=== PATIENT | female | born 1985 | race African-American/Black ===

== ENCOUNTER 2017-01-24 12:26 | Inpatient (IN) | payer MEDICAID, OTHER ==
[~2017-01-24] VITALS: Ht 160 cm; Wt 88.6 kg
[2017-01-24 16:48] LABS: MEAN CORPUSCULAR HEMOGLOBIN 23.5 pg (27.0-33.0); MEAN CORPUSCULAR HGB CONC 30.8 g/dl (32.0-36.5); MEAN CORPUSCULAR VOLUME 76.1 fl (80.0-96.0); RED CELL DISTRIBUTION WIDTH 19.6 % (11.5-14.5); WHITE BLOOD COUNT 7.4 10^3/uL (4.0-10.0)
[2017-01-24 17:18] LABS: ALBUMIN 3.8 GM/DL (3.2-5.2); ALBUMIN/GLOBULIN RATIO 1.15 (1.00-1.93); ALKALINE PHOSPHATASE 71 U/L (45-117); ALT/SGPT 22 U/L (12-78); ANION GAP 7 MEQ/L (8-16); AST/SGOT 19 U/L (15-37); BILIRUBIN,DIRECT 0.2 MG/DL (0.0-0.2); BILIRUBIN,TOTAL 0.4 MG/DL (0.2-1.0); BLOOD UREA NITROGEN 11 MG/DL (7-18); CALCIUM LEVEL 10.1 MG/DL (8.5-10.1); CARBON DIOXIDE LEVEL 27 MEQ/L (21-32); CHLORIDE LEVEL 104 MEQ/L (98-107); CREATININE FOR GFR 0.63 MG/DL (0.55-1.02); GLOMERULAR FILTRATION RATE > 60.0 (>60); GLUCOSE, FASTING 113 MG/DL (70-105); POTASSIUM SERUM 4.3 MEQ/L (3.5-5.1); SODIUM LEVEL 138 MEQ/L (136-145); TOTAL PROTEIN 7.1 GM/DL (6.4-8.2)
[2017-01-24 17:33] LABS: METHADONE URINE NEGATIVE (NEGATIVE)
[2017-01-24 18:18] VITALS: BP 120/60
[2017-01-24] MEDS ORDERED: traZODone 50 MG TAB PO PRN (19:30)
[2017-01-24] MEDS ORDERED: MAALOX 30 ML SUSP *UDC PO PRN (19:30)
[2017-01-24] MEDS ORDERED: MOM 30ML SUSPENSION UDC PO PRN (19:30)
[2017-01-25 06:21] VITALS: BP 119/53
[2017-01-25] MEDS ORDERED: SERTRALINE HCL 50 MG TAB PO SCH (09:00)
[2017-01-25] MEDS ORDERED: OLANZapine ORAL DISINTEGRATING TAB 5MG PO PRN (11:00)
[2017-01-25] MEDS ORDERED: traZODone 50 MG TAB PO PRN (11:00)
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
[2017-01-25] MEDS: SERTRALINE 100 MG TAB PO SCH (11:23)
[2017-01-25] MEDS: PALIPERIDONE 3 MG ER TAB (INVEGA) PO SCH ×2 (11:23→21:52)
[2017-01-25 11:55] LABS: CONTROL LINE HCG INT CTR LINE PRESENT
[2017-01-25] MEDS: ACETAMINOPHEN TAB 650MG DOSE (2X325MG) PO PRN (12:34)
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
[2017-01-25 18:00] VITALS: BP 140/82
--- NOTE | 2017-01-26 01:35 | REP ---
Clinical: Pain . Technique: Internal rotation, external rotation, and Y view left shoulder . Findings: No acute fracture or dislocation. The acromioclavicular and glenohumeral joints are intact. No periarticular calcifications or degenerative changes are appreciated. Sub acromial space is normal. Surrounding soft tissues are unremarkable. Impression: Normal age-appropriate left shoulder radiographs. Signed by Kelby Brown MD 01/26/2017 01:26 A
[2017-01-26] MEDS: ACETAMINOPHEN TAB 650MG DOSE (2X325MG) PO PRN ×3 (03:46→21:17)
[2017-01-26 06:00] VITALS: BP 100/54
[2017-01-26 07:38] LABS: MEAN CORPUSCULAR HEMOGLOBIN 23.6 pg (27.0-33.0); MEAN CORPUSCULAR HGB CONC 30.5 g/dl (32.0-36.5); MEAN CORPUSCULAR VOLUME 77.3 fl (80.0-96.0); RED CELL DISTRIBUTION WIDTH 19.5 % (11.5-14.5); WHITE BLOOD COUNT 5.8 10^3/uL (4.0-10.0)
[2017-01-26 07:57] LABS: PERCENT SATURATION 6.3 % (13.2-45.0)
[2017-01-26] MEDS: SERTRALINE 100 MG TAB PO SCH (08:03)
[2017-01-26] MEDS: PALIPERIDONE 3 MG ER TAB (INVEGA) PO SCH ×2 (08:03→21:16)
[2017-01-26 10:13] LABS: FOLATE 6.6 NG/ML (>5.4)
[2017-01-26 18:00] VITALS: BP 132/74
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
--- NOTE | 2017-01-26 23:17 | ECGEPIP ---
Stationary ECG Study [facility] Test Date: 2017-01-25 Pat Name: JENN SANDERS Department: Room: [place] [address] Gender: F Store Administrative Assistant: : [id number] Requested By: Cyndie Ford Order Number: [id number] Reading MD: Ang Rod Measurements Intervals [place] Rate: 63 P: -7 OR: 140 QRS: 65 QRSD: 85 T: 59 QT: 360 QTc: 369 Interpretive Statements SINUS RHYTHM NONSPECIFIC ST/T ABNORMALITY NOTED CONSISTENT WITH EARLY REPOLARIZATION NO PRIOR TRACING IN THE SYSTEM Electronically Signed On 01-26-2017 23:16:58 EDT by Ang Rod
[2017-01-27 06:41] VITALS: BP 118/56
[2017-01-27] MEDS: SERTRALINE 100 MG TAB PO SCH (08:13)
[2017-01-27] MEDS: PALIPERIDONE 3 MG ER TAB (INVEGA) PO SCH ×2 (08:14→20:10)
[2017-01-27] MEDS: FERROUS SULFATE 325MG TAB PO SCH (08:14)
[2017-01-27] MEDS: ACETAMINOPHEN TAB 650MG DOSE (2X325MG) PO PRN ×2 (08:14→15:08)
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
[2017-01-27 18:00] VITALS: BP 114/68
[2017-01-27] MEDS: traZODone 100 MG TAB PO PRN (20:10)
[2017-01-28 06:24] VITALS: BP 101/56
[2017-01-28] MEDS: FERROUS SULFATE 325MG TAB PO SCH (08:31)
[2017-01-28] MEDS: PALIPERIDONE 3 MG ER TAB (INVEGA) PO SCH ×2 (08:31→20:15)
[2017-01-28] MEDS: SERTRALINE 100 MG TAB PO SCH (08:31)
[2017-01-28 18:00] VITALS: BP 111/69
--- NOTE | 2017-01-28 19:58 | MHIPNPDOC ---
[facility] Progress Note Progress Note DATE OF SERVICE: 01/28/17 HISTORY: Patient is a 31-year-old female, with a past psychiatric history of Bipolar disorder, PTSD, Anxiety and Schizophrenia per chart who initially came to the [facility] ED on her own, unaccompanied, on 01/23/17 after two weeks of ongoing SI (per chart-thoughts taking pills)/HI (per chart-feeling like throwing someone in front of a car) and depression. Per chart she was also experiencing shadows out of the corners of her eyes and auditory hallucinations. During her ED stay there she required restraints and was given Haldol and Ativan for agitation. She was transferred to the [facility] ED 01/24/17. She was admitted to the [facility] for schizophrenia. VITAL SIGNS: See below. NEW TEST RESULTS: None CURRENT MEDICATIONS: See below. MENTAL STATUS EXAMINATION: Patient is a 31-year old female, who is alert, cooperative, dressed in hospital clothes with good eye contact and fair hygiene. Speech: Is soft spoken, slow, normal tone, coherent. Language skills are fair. Thought processes including: Improving. Thought content: Focused on being discharged because she is feeling better. Abstract reasoning, and computation: Not assessed at this time. Description of associations: Good Description of abnormal or psychotic thoughts: Denies suicidal ideation, denies homicidal ideation denies auditory and visual hallucinations, denies thought delusions. Judgment: Improving. Insight: Improving. Orientation: Oriented 3. Recent and remote memory: Intact. Attention span and concentration: Fair. Language: Normal. Fund of knowledge: Not assessed at this time. Mood: "I feel amazing". Affect: A little constricted. DIAGNOSES: 1. PTSD 2. Cluster B personality traits, likely Borderline Personality Disorder ASSESSMENT: Patient is attending groups, she is sleeping better she has denied medication side effects and she says that her appetite has improved since she has been at the inpatient mental health unit. Patient is showing no response to medications. MANAGEMENT PLAN: Will continue with the same treatment plan. TIME SPENT: 30 minutes. Vital Signs Vital Signs Date Time Temp Pulse Resp B/P (MAP) Pulse Ox O2 Delivery O2 Flow Rate FiO2 01/28/17 18:00 98.0 110 16 111/69 (83) 01/25/17 06:21 Room Air 01/24/17 18:01 97 Current Medications Current Medications Acetaminophen (Tylenol Tab) 650 mg Q6HP PRN PO HEADACHE or DISCOMFORT Last administered on 01/27/17 15:08; Start 01/24/17 at 19:30; Stop 02/23/17 at 19: 29 Al Hydrox/Mg Hydrox/Simethicone (Mylanta) 30 ml Q4HP PRN PO HEARTBURN/ INDIGESTION; Start 01/24/17 at 19:30; Stop 02/23/17 at 19:29 Ferrous Sulfate (Ferrous Sulfate) 325 mg DAILY PO Last administered on 08:31; Start 01/27/17 at 09:00; Stop 02/26/17 at 08:59 Home Med (Med Rec Complete!) ASDIRECTED XX ; Start 01/24/17 at 15:15; Stop at 15:15; Status DC Magnesium Hydroxide (Milk Of Magnesia) 30 ml DAILYPRN PRN PO CONSTIPATION; Start 01/24/17 at 19:30; Stop 02/23/17 at 19:29 Olanzapine (ZyPREXA ZYDIS) 5 mg Q6HP PRN PO ANXIETY/AGITATION Last administered on 01/25/17 13:38; Start 01/25/17 at 11:00; Stop 02/24/17 at 10: 59 Paliperidone (Invega) 3 mg BID PO Last administered on 01/28/17 08:31; Start 01/25/17 at 09:00; Stop 02/24/17 at 08:59 Sertraline HCl (Zoloft) 50 mg DAILY PO ; Start 01/25/17 at 09:00; Stop 01/25/17 at 10:58; Status DC Sertraline HCl (Zoloft) 200 mg DAILY PO Last administered on 01/28/17 08:31; Start 01/25/17 at 09:00; Stop 02/24/17 at 08:59 Trazodone HCl (Desyrel) 50 mg QHSP PRN PO INSOMNIA; Start 01/24/17 at 19:30; Stop 01/25/17 at 10:51; Status DC Trazodone HCl (Desyrel) 75 mg QHSP PRN PO INSOMNIA; Start 01/25/17 at 11:00; Stop 01/25/17 at 11:00; Status DC Trazodone HCl (Desyrel) 200 mg QHSP PRN PO INSOMNIA Last administered on t 20:10; Start 01/25/17 at 11:00; Stop 02/24/17 at 10:59 Allergies Coded Allergies: Amoxicillin (Verified Allergy, Unknown, hives, 01/24/17) Aspirin (Verified Allergy, Unknown, hives, 01/24/17) Cinnamedrine (Verified Allergy, Unknown, hives, 01/24/17) Clindamycin (Verified Allergy, Unknown, HIVES, 01/26/17) Cranberry Extract (Verified Allergy, Unknown, 01/24/17) Ibuprofen (Verified Allergy, Unknown, hives, 01/24/17) Penicillins (Verified Allergy, Unknown, hives, 01/24/17) Raspberry (Verified Allergy, Unknown, HIVES, 01/26/17) CISCO FORREST MD Jan 28, 2017 19:58
[2017-01-28] MEDS: traZODone 100 MG TAB PO PRN (20:15)
[2017-01-29 06:24] VITALS: BP 123/60
[2017-01-29] MEDS: FERROUS SULFATE 325MG TAB PO SCH (08:26)
[2017-01-29] MEDS: SERTRALINE 100 MG TAB PO SCH (08:26)
[2017-01-29] MEDS: PALIPERIDONE 3 MG ER TAB (INVEGA) PO SCH (10:36)
[2017-01-29] MEDS ORDERED: PALI1TAB2 PO ×2 (11:04→11:28)
[2017-01-29] MEDS ORDERED: TRAZ10TA PO ×2 (11:04→11:28)
[2017-01-29] MEDS ORDERED: Sertraline Hcl PO (11:04)
[2017-01-29] MEDS ORDERED: OLAN5ZYD PO ×2 (11:04→11:28)
[2017-01-29] MEDS ORDERED: FERR1TAB8 PO ×2 (11:04→11:28)
[2017-01-29] MEDS ORDERED: SERT-138 PO (11:32)
--- NOTE | 2017-01-30 12:53 | MHDSPDOC ---
[facility] Discharge Summary Discharge Summary DATE OF ADMISSION: Jan 24, 2017 at 15:00 DATE OF DISCHARGE: Jan 29, 2017 at 11:50 DISCHARGE DIAGNOSES: 1. PTSD 2. Cluster B personality Disorder, possible Borderline Personality Disorder 3. Schizoaffective Disorder vs Bipolar Disorder REASON FOR ADMISSION: Patient is a 31-year-old female, with a past psychiatric history of Bipolar disorder, PTSD, Anxiety and Schizophrenia per chart who initially came to the [facility] ED on her own, unaccompanied, on 01/23/17 after two weeks of ongoing SI ( per chart-thoughts taking pills)/HI (per chart-feeling like throwing someone in front of a car) and depression. Per chart she was also experiencing shadows out of the corners of her eyes and auditory hallucinations. During her ED stay there she required restraints and was given Haldol and Ativan for agitation. She was brought to the [facility] ED 01/24/17. She was admitted to the [facility] for schizophrenia. CONSULTANTS INVOLVED: PT on 01/26/17 for L shoulder pain post ED restraint (per note- L shoulder strain, exercises done) TREATMENT AND PROGRESS ON THE UNIT: She was started on after arriving on the [facility]. was added for . Her psychotic symptoms resolved and anxiety/mood symptoms improved. She received medications: On 01/24/17 she received 50 mg Trazodone HCL QHS for sleep. On 01/25/17 she was started on Sertraline 200 mg PO for mood, Paliperidone 3 mg PO BID for Psychosis, Trazodone 200 mg PO for sleep. 01/25/17 Olanzepine 5 mg PO Q6H PRN for agitation/anxiety ordered. She received individual and group therapy daily. Was seen daily and assessed for safety and progress by medical staff. On interview 01/26/17 after starting medications she says her mood/anxiety significantly improved and no AVH, SI/HI, paranoia, delusions were present. Her energy, sleep and appetite all improved. HOSPITAL COURSE: She was brought from the [facility] ED (where she was chemically and physically restrained) to the [facility] ED on 01/24/17, at the [facility] ED she endorced auditory hallucinations and passive SI. Labs were draw including: CBC, BMP, Liver Panel, TSH, Urine toxicology screen. She was transferred to the [facility] on 01/24/17, the same day for Schizophrenia. On 01/24/17 she received 50 mg Trazodone HCL QHS for sleep. She was assessed daily by medical staff for safety and received daily therapy/education. DISCHARGE ASSESSMENT: Has improved on medications for mood and psychotic symptoms. Says she feels "the best in a long time" since being treated on the unit. She denies depressed mood, anxiety, AVH, delusions, bizarre behavior, SI/ HI. She says she does not have racing thoughts and that her mind is "clear". denies side effects from medications. Says her L arm continues to improve and that the ROM is almost full, with minimal swelling. She is ready to leave with family and wants to follow up with out-patient treatment/continue her medications. Denies any common or rare medication side effects. MENTAL STATUS EXAMINATION ON DISCHARGE: Patient is a 26-year old female, who is in NAD, fair groomed, makes moderate eye -contact. Speech fluent, normal in rate, rhythm, volume and prosody. Language skills are fair. Thought processes: Intact. Thought content: No SI, HI, AVH, paranoia, delusions/bizarre behavior. Abstract reasoning, and computation: Intact. Description of associations: Intact. Description of abnormal or psychotic thoughts: none. Judgment: good. Insight: fair. Orientation to: time, person, place. Recent and remote memory: Intact. Attention span and concentration: Intact. Fund of knowledge: normal. Mood: "great". Affect: euthymic, constricted. MEDICATIONS ON DISCHARGE: - Paliperidone ER 3 mg PO BID for Psychosis. - Sertraline HCL 2 x 100 mg PO QDAILY for Depression/anxiety - Olanzapine 5 mg PO Q6H PRN for agitation/anxiety. - Trazodone HCL 2 x 100 mg PO for Insomnia. PLAN/FOLLOWUP ARRANGEMENTS: Continue on discharge medications. Follow up with outpatient treatment. Patient counselled for safety. Follow Up Care Education Label * [facility] * Established With This Provider No * Follow Up Care Education Label * Case Management * Care Coordination/Case Management/Supervision [facility] * * Additional information Call and ask for transfer to the [facility] Follow Up Care Education Label * Medical * Medical Follow Up [facility] * Established With This Provider Yes * Therapist DR. MILLAN * Date Feb 05, 2017 * Time 14:45 * * Additional information [facility]. The amount of time spent in the coordination of care for this patient was approximately 30 minutes. Vital Signs/I&Os Vital Signs Date Time Temp Pulse Resp B/P (MAP) Pulse Ox O2 Delivery O2 Flow Rate FiO2 01/29/17 06:24 97.8 108 20 123/60 (81) 01/25/17 06:21 Room Air 01/24/17 18:01 97 Laboratory Data Microbiology Microbiology 01/26/17 Urine Culture - Final, Complete Medications Scheduled Ferrous Sulfate (Ferrous Sulfate) 325 Mg Tab, 325 MG PO DAILY for ANEMIA, #10 Paliperidone (Invega) 6 Mg Tab, 6 MG PO DAILY for PSYCHOSIS, #7 Sertraline HCl (Sertraline HCl) 100 Mg Tab, 200 MG PO DAILY for MOOD, #14 Scheduled PRN Olanzapine (Olanzapine Odt) 5 Mg Tab, 5 MG PO Q6HP PRN for ANXIETY/AGITATION, # 10 Trazodone HCl (Trazodone HCl) 100 Mg Tab, 200 MG PO QHSP PRN for INSOMNIA, #14 Allergies Coded Allergies: Amoxicillin (Verified Allergy, Unknown, hives, 01/24/17) Aspirin (Verified Allergy, Unknown, hives, 01/24/17) Cinnamedrine (Verified Allergy, Unknown, hives, 01/24/17) Clindamycin (Verified Allergy, Unknown, HIVES, 01/26/17) Cranberry Extract (Verified Allergy, Unknown, 01/24/17) Ibuprofen (Verified Allergy, Unknown, hives, 01/24/17) Penicillins (Verified Allergy, Unknown, hives, 01/24/17) Raspberry (Verified Allergy, Unknown, HIVES, 01/26/17) ALISON FRY PGY-1 Jan 30, 2017 12:53
[2017-01-30] MEDS ORDERED: INVE6TAB3 PO (14:43)
== END 2017-01-29 11:50 | disposition home or self-care (01) | DRG 755 ==
LOC: M ED 14:51 → M ED INP 15:00 → M PSY 18:13
PROVIDERS: ADMIT Psychiatry & Neurology Psychiatry; ATTEND Psychiatry & Neurology Psychiatry
DX: F43.10 Post-traumatic stress disorder, unspecified (principal); R45.851 Suicidal ideations; F25.9 Schizoaffective disorder, unspecified; F31.9 Bipolar disorder, unspecified; F60.3 Borderline personality disorder; Z79.899 Other long term (current) drug therapy; Z88.0 Allergy status to penicillin; Z88.6 Allergy status to analgesic agent; Z88.1 Allergy status to other antibiotic agents; Z88.8 Allergy status to other drugs, medicaments and biological substances; Z91.018 Allergy to other foods; Z90.49 Acquired absence of other specified parts of digestive tract; F17.210 Nicotine dependence, cigarettes, uncomplicated; D64.9 Anemia, unspecified; M54.5 Low back pain; M25.512 Pain in left shoulder; M25.561 Pain in right knee